=== PATIENT | male | born 1965 | race Caucasian/White ===

== ENCOUNTER 2016-07-14 16:09 | Inpatient (IN) | payer OTHER ==
[~2016-07-14] VITALS: Ht 172.7 cm; Wt 95.4 kg
[2016-07-14 17:43] LABS: BASOPHIL 0.1 % (0-2); EOSINOPHIL 0.1 % (0-5); HCT 50.3 % (42.0-52.0); HGB 17.8 g/dl (13.2-18.0); LYMPHOCYTE 7.7 % (15-48); MCH 31.2 pg (25.0-31.0); MCHC 35.4 g/dL (32.0-36.0); MCV 88.1 fL (78.0-100.0); MONOCYTE 6.3 % (0-12); MPV 10.6 fL (6.0-9.5); NEUTROPHIL 85.8 % (41-80); PLT 267 K/uL (150-400); RBC 5.71 M/uL (4.70-6.00); RDW 13.8 % (11.5-14.0)
[2016-07-14 17:44] LABS: BILIRUBIN 1+ mg/dL (NEGATIVE); BLOOD TRACE-LYSED Ery/uL (NEGATIVE); CLARITY CLEAR (CLEAR); COLOR YELLOW (YELLOW); GLUCOSE (U) NORMAL (NORMAL); KETONE (U) NEGATIVE (NEGATIVE); LEUKOCYTES NEGATIVE Leu/uL (NEGATIVE); NITRITE NEGATIVE (NEGATIVE); PROTEIN 2+ mg/dL (NEGATIVE); SPECIFIC GRAVITY 1.015 (1.001-1.030)
[2016-07-14 17:50] LABS: URINARY WBC RARE
[2016-07-14 17:51] LABS: MUCOUS MODERATE
[2016-07-14 17:57] LABS: ALBUMIN 4.5 g/dL (3.5-5.0); BILIRUBIN - TOTAL 1.2 mg/dL (0.1-1.0); CREATININE 0.8 mg/dL (0.7-1.2); GLOBULIN (CALCULATION) 3.7 g/dL (2.2-4.2); POTASSIUM 3.9 mmol/L (3.5-5.1); TOTAL PROTEIN 8.2 g/dL (6.4-8.3)
[2016-07-14 18:01] LABS: LACTIC ACID 1.5 mmol/L (0.5-2.2)
[2016-07-14 22:01] LABS: INR 1.11 (0.9-1.2); PROTHROMBIN TIME 13.9 SECONDS (11.7-14.0); PTT 35.4 SECONDS (23.2-31.4)
[2016-07-15 04:15] LABS: BASOPHIL 0.1 % (0-2); EOSINOPHIL 0.2 % (0-5); HCT 46.5 % (42.0-52.0); HGB 15.6 g/dl (13.2-18.0); LYMPHOCYTE 4.5 % (15-48); MCH 30.5 pg (25.0-31.0); MCHC 33.5 g/dL (32.0-36.0); MCV 90.8 fL (78.0-100.0); MONOCYTE 7.9 % (0-12); MPV 10.2 fL (6.0-9.5); NEUTROPHIL 87.3 % (41-80); PLT 222 K/uL (150-400); RBC 5.12 M/uL (4.70-6.00); WBC 19.6 K/uL (4.0-10.5)
[2016-07-15 04:47] LABS: ALBUMIN 3.6 g/dL (3.5-5.0); BILIRUBIN - TOTAL 0.9 mg/dL (0.1-1.0); CREATININE 0.9 mg/dL (0.7-1.2); GLOBULIN (CALCULATION) 2.6 g/dL (2.2-4.2); POTASSIUM 4.2 mmol/L (3.5-5.1); TOTAL PROTEIN 6.2 g/dL (6.4-8.3)
[2016-07-16 04:01] LABS: HCT 41.9 % (42.0-52.0); HGB 13.9 g/dl (13.2-18.0); MCH 30.8 pg (25.0-31.0); MCHC 33.2 g/dL (32.0-36.0); MCV 92.7 fL (78.0-100.0); MPV 9.8 fL (6.0-9.5); RBC 4.52 M/uL (4.70-6.00); RDW 13.8 % (11.5-14.0); WBC 13.3 K/uL (4.0-10.5)
[2016-07-16 04:47] LABS: CREATININE 0.8 mg/dL (0.7-1.2); POTASSIUM 3.7 mmol/L (3.5-5.1)
[2016-07-17 03:54] LABS: HCT 39.5 % (42.0-52.0); HGB 13.3 g/dl (13.2-18.0); MCH 30.8 pg (25.0-31.0); MCHC 33.7 g/dL (32.0-36.0); MCV 91.4 fL (78.0-100.0); MPV 10.1 fL (6.0-9.5); RBC 4.32 M/uL (4.70-6.00); RDW 13.5 % (11.5-14.0); WBC 10.6 K/uL (4.0-10.5)
[2016-07-17 04:14] LABS: CREATININE 0.6 mg/dL (0.7-1.2); POTASSIUM 3.5 mmol/L (3.5-5.1)
[2016-07-18 04:00] LABS: HCT 39.6 % (42.0-52.0); HGB 13.8 g/dl (13.2-18.0); MCH 31.2 pg (25.0-31.0); MCHC 34.8 g/dL (32.0-36.0); MCV 89.4 fL (78.0-100.0); RBC 4.43 M/uL (4.70-6.00); RDW 13.2 % (11.5-14.0); WBC 10.2 K/uL (4.0-10.5)
[2016-07-18 04:13] LABS: CREATININE 0.6 mg/dL (0.7-1.2); POTASSIUM 3.2 mmol/L (3.5-5.1)
[2016-07-18] MEDS ORDERED: LEVAQUIN750 MG PO (15:06)
[2016-07-18] MEDS ORDERED: METRONIDAZOLE500 MG PO (15:07)
== END 2016-07-18 15:15 | disposition home or self-care (01) | DRG 871 ==
LOC: FER 16:09 → FTCU 19:38
PROVIDERS: Emergency Medicine; Internal Medicine; Internal Medicine Adolescent Medicine; Nurse Practitioner; Surgery; ADMIT Internal Medicine
DX: A41.9 Sepsis, unspecified organism (principal); J96.01 Acute respiratory failure with hypoxia; E87.2 Acidosis; K57.20 Diverticulitis of large intestine with perforation and abscess without bleeding; J98.11 Atelectasis; R65.20 Severe sepsis without septic shock; F17.210 Nicotine dependence, cigarettes, uncomplicated; G47.00 Insomnia, unspecified; F12.90 Cannabis use, unspecified, uncomplicated; E87.6 Hypokalemia
CPT/HCPCS: 36415; 36600; 71010; 80048; 80053; 81001; 82150; 82803; 83036; 83605; 83690; 83735; 84484; 85025; 85610; 85730; 86850; 86900; 86901; 87040; 93005; 94640; 94667; 94668; C9113; J1170; J1335; J2060; J2270; J2405; J2543; Q9967

== ENCOUNTER 2021-10-22 13:22 | Emergency (ER) | payer MEDICARE ==
[~2021-10-22 13:22] MED LIST: ACIDOPHILUS100 MG PO; ASPIRIN EC81 MG PO; AUGMENTIN 875-1 EACH PO; BUSPAR5 MG PO; CEFTRIAXONE1 GM IV; CHANTIX1 MG PO; CIPRO500 MG PO; DIGITEK250 MCG PO; FLAGYL500 MG PO; HYDROCODON-ACE1 EAC6 PO; LEVAQUIN500 MG PO; LEVAQUIN750 MG PO; LIPITOR40 MG PO; LOPRESSOR25 MG PO; MAG-OXIDE 400M400 MG PO; METRONIDAZOLE500 MG PO; NEURONTIN100 MG PO; NORVASC 10MG TA10 MG PO; PEPCID AC20 MG PO; PLAVIX75 MG PO; PRINIVIL10 MG PO; SEROQUEL 25MG T25 MG PO; SERTRALINE HCL50 MG PO; ZOLOFT100 MG PO
[2021-10-22 14:35] LABS: BASOPHIL 0.3 % (0-2); EOSINOPHIL 0.2 % (0-5); HCT 42.3 % (42.0-52.0); HGB 14.3 g/dl (13.2-18.0); LYMPHOCYTE 8.2 % (15-48); MCH 31.3 pg (25.0-31.0); MCHC 33.8 g/dL (32.0-36.0); MCV 92.6 fL (78.0-100.0); MONOCYTE 9.1 % (0-12); MPV 9.8 fL (6.0-9.5); NEUTROPHIL 81.4 % (41-80); NRBC 0; PLT 252 K/uL (150-400); RBC 4.57 M/uL (4.70-6.00); RDW 12.9 % (11.5-14.0); WBC 14.8 K/uL (4.0-10.5)
[2021-10-22 14:55] LABS: BILIRUBIN 1+ mg/dL (NEGATIVE); BLOOD NEGATIVE Ery/uL (NEGATIVE); CLARITY CLEAR (CLEAR); COLOR YELLOW (YELLOW); GLUCOSE (U) NORMAL (NORMAL); PROTEIN 1+ mg/dL (NEGATIVE); SPECIFIC GRAVITY 1.025 (1.001-1.030)
[2021-10-22 14:56] LABS: LEUKOCYTES NEGATIVE Leu/uL (NEGATIVE); NITRITE NEGATIVE (NEGATIVE)
[2021-10-22 14:59] LABS: MUCOUS MODERATE; SQUAMOUS EPITHELIAL CELLS RARE; URINARY WBC RARE
[2021-10-22 15:05] LABS: LACTIC ACID 0.8 mmol/L (0.4-1.9)
[2021-10-22 15:07] LABS: ALBUMIN 3.6 g/dL (3.4-5.0); ALKALINE PHOSHATASE 75 U/L (46-116); ALT 26 U/L (16-63); AST 23 U/L (15-37); BILIRUBIN - TOTAL 0.9 mg/dL (0.2-1.0); BUN 8 mg/dL (7-18); BUN/CREAT RATIO (CALC) 8.8 RATIO; CHLORIDE 95 mmol/L (98-107); CO2 (BICARBONATE) 27 mmol/L (21-32); CREATININE 0.91 mg/dL (0.67-1.17); GLOBULIN (CALCULATION) 4.4 g/dL; GLUCOSE 137 mg/dL (74-106); LIPASE 65 U/L (73-393)
== END 2021-10-22 19:36 | disposition other institution (70) ==
LOC: FER 13:22
PROVIDERS: Emergency Medicine
DX: K65.1 Peritoneal abscess (principal); K63.2 Fistula of intestine; I10 Essential (primary) hypertension; F17.210 Nicotine dependence, cigarettes, uncomplicated; Z79.899 Other long term (current) drug therapy; Z20.822 Contact with and (suspected) exposure to COVID-19; Z28.310 Unvaccinated for COVID-19
CPT/HCPCS: 36415; 71045; 80053; 81001; 83605; 83690; 84145; 85025; 87040; G0480; J2270; J2405; J2543; J7030; Q9967; U0002